=== PATIENT | female | born 1990 | race Hispanic/Latino ===

== ENCOUNTER 2017-03-14 06:44 | Day surgery (SDC) | payer OTHER ==
[2017-03-14 07:32] VITALS: O2SAT 100
[2017-03-14] MEDS ORDERED: Propofol 10 mg/ml Inj (20 ML) ONE (07:55)
[2017-03-14] MEDS ORDERED: Lactated Ringer's 500 ML IV SCH (08:00)
[2017-03-14 08:38] VITALS: TEMP 98.8
[2017-03-14 08:40] VITALS: RESP 15
[2017-03-14 09:20] VITALS: BP 106/59; PULSE 88
== END 2017-03-14 09:14 | disposition home or self-care (01) ==
LOC: C.ENDO 06:44
PROVIDERS: ATTEND Internal Medicine Gastroenterology
DX: K29.50 Unspecified chronic gastritis without bleeding (principal); R12 Heartburn
CPT/HCPCS: 43239; 84703; 88305; 88312; 88313; 88342; J2704; J3010; J7120

== ENCOUNTER 2017-12-12 21:33 | Emergency (ER) | payer OTHER ==
[2017-12-12 21:53] VITALS: RESP 16
[2017-12-12 22:22] LABS: BASO % 0.3 % (0.0-2.0); EOS % 0.6 % (0.0-4.0); HEMOGLOBIN 11.9 g/dL (11.0-16.0); LYMPH # 1.3 K/uL (1.0-4.3); LYMPH % 22.7 % (20.0-40.0); MEAN CELL VOLUME 88.3 fL (81.0-99.0); MEAN CORPUSCULAR HEMOGLOBIN 30.5 pg (27.0-31.0); MEAN CORPUSCULAR HGB CONC 34.5 g/dL (33.0-37.0); MEAN PLATELET VOLUME 8.8 fL (7.2-11.7); MONO # 0.6 K/uL (0.0-0.8); MONO % 11.2 % (0.0-10.0); NEUT # 3.7 K/uL (1.8-7.0); NEUT % 65.2 % (50.0-75.0); RBC 3.91 Mil/uL (3.80-5.20); RED CELL DISTRIBUTION WIDTH 12.8 % (11.5-14.5); WHITE BLOOD COUNT 5.7 K/uL (4.8-10.8)
[2017-12-12] MEDS ORDERED: cefTRIAXone IV 1 gm in Dextros 50 ML IVPB ONE ×2 (22:48→22:52)
[2017-12-12] MEDS ORDERED: Clindamycin 600mg/50ml NS 600 MG/50 ML BAG IVPB ONE (22:52)
--- NOTE | 2017-12-12 22:54 | C.PDOC ---
History Of Present Illness Patient is a 27 y/o female who presents to the ED with a complaint of sore throat and fever since Saturday 12/09. Patient states she was seen by Dr Sadny several times and was started on Zpack, but switched to Augmentin on Saturday and then to doxycyline. Patient reported to still be febrile subsequent to stopping antipyretics and was advised by Dr Sandy to visit ER. Patient notes some body aches and left upper abdominal discomfort, no nausea. vomiting or diarrhea. Admits she is able to swallow without difficulty. Patient is an [employer] at [employer]. No other physical complaints at this time. Time Seen by Provider: 12/12/17 22:31 Chief Complaint (Nursing): ENT Problem History Per: Patient History/Exam Limitations: no limitations Onset/Duration Of Symptoms: Days (Saturday 12/09) Current Symptoms Are (Timing): Still Present Associated Symptoms: Sore Throat Past Medical History Reviewed: Historical Data, Nursing Documentation, Vital Signs Vital Signs: Last Vital Signs Temp 99.5 F 12/12/17 23:56 Pulse 89 12/12/17 23:56 Resp 16 12/12/17 23:56 BP 121/74 12/12/17 23:56 Pulse Ox 100 12/13/17 03:34 - Medical History PMH: No Chronic Diseases Denies: Chronic Kidney Disease Surgical History: No Surg Hx Family History: States: No Known Family Hx - Social History Hx Tobacco Use: No Hx Alcohol Use: No Hx Substance Use: No Review Of Systems Constitutional: Positive for: Fever ENT: Positive for: Throat Pain Physical Exam - Physical Exam Appears: Well, No Acute Distress Skin: Normal Color, Warm, Dry Head: Atraumatic, Normacephalic Eye(s): bilateral: Normal Inspection Ear(s): Bilateral: Normal Nose: Normal, No Discharge Oral Mucosa: Moist, No Drooling, No Trismus Throat: Exudate (whitish-graham tonsilar exudates, left greater than right) Neck: Supple Lymphatic: Adenopathy Chest: Symmetrical Cardiovascular: Rhythm Regular, No Murmur Respiratory: Normal Breath Sounds, No Rales, No Rhonchi, No Wheezing Gastrointestinal/Abdominal: Soft, Tenderness (minimal luq tenderness, no rebound , guarding or distension), No Organomegaly ED Course And Treatment - Laboratory Results Result Diagrams: 12/12/17 22:19 O2 Sat by Pulse Oximetry: 100 Progress Note: Chlamydia/GC, POC urine, mono spot, and rapid strep ordered. Tylenol administered. Monospot and rapid strep negative. Case discussed with Dr Sandy who advises IV rocephin and clindamycin. Patient discharged and advised to follow up with Dr Sandy tomorrow for ENT. Medical Decision Making Medical Decision Making: discussed with Dr Sandy; will give dose iv rocephin and clinda in ed, d/c with po clinda. pt to f/u Dr Byrd tomorrow for referral to ent. Disposition Discussed With Dr.: Evelyn Sandy Doctor Will See Patient In The: Office Counseled Patient/Family Regarding: Studies Performed, Diagnosis, Need For Followup, Rx Given - Disposition Referrals: Evelyn Sandy MD [Staff Provider] - Disposition: HOME/ ROUTINE Disposition Time: 23:57 Condition: GOOD Additional Instructions: Please continue Augmentin and take Clindamycin as well. Tylenol or Motrin for pain or fever. Follow up with Dr Sandy tomorrow. Prescriptions: Clindamycin [Cleocin] 300 mg PO Q6 #28 cap Instructions: Sore Throat, Adult (DC) Forms: General Discharge Instructions, [facility] (Mongolian), Work Excuse - Clinical Impression Clinical Impression: Exudative pharyngitis - Scribe Statement The provider has reviewed the documentation as recorded by the Scribtommie Rodríguez All medical record entries made by the Scribe were at my direction and personally dictated by me. I have reviewed the chart and agree that the record accurately reflects my personal performance of the history, physical exam, medical decision making, and the department course for this patient. I have also personally directed, reviewed, and agree with the discharge instructions and disposition.
[2017-12-12 23:57] VITALS: BP 121/74; PULSE 89; TEMP 99.5
[2017-12-12 23:59] VITALS: O2SAT 100
== END 2017-12-13 00:06 | disposition home or self-care (01) ==
LOC: C.ER 21:33
DX: J02.9 Acute pharyngitis, unspecified (principal)
CPT/HCPCS: 85025; 86308; 87070; 87430; 96365; 96375; 99285; J0696